=== PATIENT | female | born 1970 | race Caucasian/White ===

== ENCOUNTER 2022-12-07 16:27 | Emergency (ER) | payer BC ==
[2022-12-07 16:53] VITALS: RESP 16
--- NOTE | 2022-12-07 18:18 | ED ---
Fall HPI - General Chief Complaint: Fall Stated Complaint: right knee/left elbow pain-fall Time Seen by Provider: 12/07/22 17:09 Source: patient Mode of arrival: ambulatory Limitations: no limitations - History of Present Illness Initial Comments: This is a 52-year-old female to the Emergency Department today. This patient fell tripping in her garage for which she believes was an umbrella, she did land on her left shoulder left elbow is wishes fevers and decreased range of motion. Also complaining of some right knee pain periumbilical to ambulate without significant difficulty. Patient not her head no loss of consciousness no blood thinners no other complaints. 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 Place Fall Occurred: home Loss of Consciousness: none Prolonged Down Time?: no Symptoms Prior to Fall: none Location - Extremities: Left: Shoulder, Arm, Elbow, Right: Knee Severity: moderate Severity scale (1-10): 3 Quality: burning, dull Context: tripped/slipped Associated Symptoms: denies - Related Data Home Medications Medication Instructions Recorded Confirmed Aspirin 81 mg PO DAILY 11/03/13 11/03/13 Multivitamins, Thera [Multivitamin] 1 each PO DAILY 11/03/13 11/03/13 Tacrolimus [Prograf] 3 mg PO BID 11/03/13 11/03/13 lisinopriL [Zestril] 20 mg PO DAILY 11/03/13 11/03/13 mycophenolate mofetiL [Cellcept] 500 mg PO BID 11/03/13 11/03/13 Allergies Allergy/AdvReac Type Severity Reaction Status Date / Time cephalexin monohydrate AdvReac Unknown Verified 12/07/22 16:48 [From Keflex] ciprofloxacin [From Cipro] AdvReac Unknown Verified 12/07/22 16:48 ciprofloxacin HCl AdvReac Unknown Verified 12/07/22 16:48 [From Cipro] Review of Systems ROS Statement: Those systems with pertinent positive or pertinent negative responses have been documented in the HPI. ROS Other: All systems not noted in ROS Statement are negative. Past Medical History Additional Past Medical History / Comment(s): lupus, covid X2 History of Any Multi-Drug Resistant Organisms: None Reported Past Surgical History: Appendectomy, Section, Hernia Repair, Tonsillectomy Additional Past Surgical History / Comment(s): kidney transplant Past Psychological History: No Psychological Hx Reported Smoking Status: Never smoker Past Alcohol Use History: Rare Past Drug Use History: None Reported General Exam Limitations: no limitations General appearance: alert, in no apparent distress Head exam: Present: atraumatic, normocephalic, normal inspection Eye exam: Present: normal appearance, PERRL, EOMI. Absent: scleral icterus, conjunctival injection, periorbital swelling ENT exam: Present: normal exam, mucous membranes moist Neck exam: Present: normal inspection. Absent: tenderness, meningismus, lymphadenopathy Respiratory exam: Present: normal lung sounds bilaterally. Absent: respiratory distress, wheezes, rales, rhonchi, stridor Cardiovascular Exam: Present: regular rate, normal rhythm, normal heart sounds. Absent: systolic murmur, diastolic murmur, rubs, gallop, clicks GI/Abdominal exam: Present: soft, normal bowel sounds. Absent: distended, tenderness, guarding, rebound, rigid Extremities exam: Present: normal inspection, full ROM, normal capillary refill. Absent: tenderness, pedal edema, joint swelling, calf tenderness Back exam: Present: normal inspection Neurological exam: Present: alert, oriented X3, CN II-XII intact Psychiatric exam: Present: normal affect, normal mood Skin exam: Present: warm, dry, intact, normal color. Absent: rash Course Vital Signs 12/07/22 12/07/22 16:48 19:35 Temperature 98.0 F 98.6 F Pulse Rate 85 76 Respiratory 16 16 Rate Blood Pressure 120/82 121/78 O2 Sat by Pulse 98 98 Oximetry - Reevaluation(s) Reevaluation #1: 12/23/22 Medical records reviewed Reevaluation #2: 12/05/22 Patient symptoms are improving and able to ambulate Reevaluation #3: 12/05/22 Patient informed of results and questions answered Reevaluation #4: 12/05/22 Was pt. sent in by a medical professional or institution? @ -no Did you speak to anyone other than the patient for history? @ -no Did you review nursing and triage notes? @ -agree Were old charts reviewed? @ -yes Differential Diagnosis? @ -prior EKG interpreted by me (3pts min.)? @ -no X-rays interpreted by me (1pt min.)? @ -yes CT interpreted by me (1pt min.)? @ -no U/S interpreted by me (1pt. min.)? @ -no What testing was considered but not performed? (CT, X-rays, U/S, labs)? Why? @ -no What meds were considered but not given? Why? @ -no Did you discuss the management of the patient with other professionals? @ -no Did you reconcile home meds? @ -no Was smoking cessation discussed for >3mins.? @ -no Was critical care preformed (if so, how long)? @ -no Were there social determinants of health that impacted care today? How? (Homelessness, low income, unemployed, alcoholism, drug addiction, transportation, low edu. Level, literacy, decrease access to med. care, fpc, rehab)? @ -no Was there de-escalation of care discussed even if they declined? (Discuss DNR or withdrawal of care, Hospice)? @ -no What co-morbidities impacted this encounter? (DM, HTN, Smoking, COPD, CAD, Cancer, CVA, Hep., AIDS, mental health diagnosis, sleep apnea, morbid obesity)? @ -none Was patient admitted / discharged? @ -52-year-old female to the emergency department for And fall mechanical trip and fall in her garage with left shoulder contusion left elbow contusion and right knee pain contusion. He is well-controlled here in the ER she is able to ambulate with no significant somatic injury can be discharged home Discharge Undiagnosed new problem with uncertain prognosis? @ -no Drug Therapy requiring intensive monitoring for toxicity (Heparin, Nitro, Insulin, Cardizem)? @ -no Were any procedures done? @ -no Diagnosis/symptom? @ -Fall with left elbow, shoulder, right knee contusion Acute, or Chronic, or Acute on Chronic? @ -acute Uncomplicated (without systemic symptoms) or Complicated (systemic symptoms)? @ -complicated Side effects of treatment? @ -no Exacerbation, Progression, or Severe Exacerbation] @ -no Poses a threat to life or bodily function? @ -no Medical Decision Making - Medical Decision Making 52-year-old female to the emergency department for And fall mechanical trip and fall in her garage with left shoulder contusion left elbow contusion and right knee pain contusion. He is well-controlled here in the ER she is able to ambulate with no significant somatic injury can be discharged home - Radiology Data Radiology results: report reviewed (X-ray left elbow negative for traumatic injury), image reviewed Disposition Clinical Impression: Fall, Left elbow pain, Contusion of left shoulder, Right knee pain Disposition: HOME SELF-CARE Condition: Good Instructions (If sedation given, give patient instructions): Swollen Joint (ED) Is patient prescribed a controlled substance at d/c from ED?: No Referrals: None,Stated [Primary Care Provider] - 1-2 days Time of Disposition: 19:00
--- NOTE | 2022-12-07 19:01 | XR ---
EXAMINATION TYPE: XR elbow complete LT DATE OF EXAM: 12/07/2022 COMPARISON: None HISTORY: Pain, fall TECHNIQUE: 3 view left elbow FINDINGS: Radius aligns normally with the humerus. Anterior fat pad is normal. No elevation of rehabilitation therapy technician ior fat pad is evident. No acute fracture or dislocation is evident. Soft tissues are normal. IMPRESSION: 1. No acute osseous abnormality left elbow. 2. Follow up exams can be performed 7-10 days from acute trauma for continued pain.
[2022-12-07 19:38] VITALS: BP 121/78; PULSE 76; TEMP 98.6
== END 2022-12-07 19:38 | disposition home or self-care (01) ==
LOC: EC 16:27
DX: S40.012A Contusion of left shoulder, initial encounter (principal); S80.01XA Contusion of right knee, initial encounter; S50.02XA Contusion of left elbow, initial encounter; Z88.1 Allergy status to other antibiotic agents; Z86.16 Personal history of COVID-19; W01.0XXA Fall on same level from slipping, tripping and stumbling without subsequent striking against object, initial encounter; Y92.59 Other trade areas as the place of occurrence of the external cause
CPT/HCPCS: 99284